=== PATIENT | female | born 1995 | race Caucasian/White ===

== ENCOUNTER 2016-10-06 20:21 | Inpatient (IN) | payer OTHER ==
[2016-10-06] MEDS ORDERED: SODIUM CHLORIDE 1,000 ML IV ONE (21:11)
[2016-10-06] MEDS ORDERED: ONDANSETRON 4 MG/2 ML VIAL IVPB ONE (21:11)
--- NOTE | 2016-10-06 21:12 | PDOC ---
History of Present Illness <Sheba Nolasco - Last Filed: 10/07/16 00:55> - General History Source: Patient Exam Limitations: No Limitations - History of Present Illness Travel History: No Initial Comments: 10/06/16 21:50 21y F no pmhx presents with R flank pain and vomiting x 1 day associated with chills. The pt notes the pain is constant and starts in the R flank and radiates to the R back and down to the RLQ. associated with nbnb vomiting. no change of food with po intake though pt stats she cant really keep anything down. no associated diarrhea or vag dc. never had these symptoms before. Timing/Duration: reports: constant <Sonu Sumner - Last Filed: 10/07/16 01:09> - General Chief Complaint: Pain Stated Complaint: VOMITING; SIDE PAIN Time Seen by Provider: 10/06/16 20:42 Past History <Sheba Nolasco - Last Filed: 10/07/16 00:55> - Past Medical History Other medical history: Pt denies - Psycho/Social/Smoking Cessation Hx Suicidal Ideation: No Smoking History: Never smoked Hx Alcohol Use: No Drug/Substance Use Hx: No Substance Use Type: None <Sonu Sumner - Last Filed: 10/07/16 01:09> - Past Medical History Allergies/Adverse Reactions: Allergies Allergy/AdvReac Type Severity Reaction Status Date / Time No Known Allergies Allergy Verified 10/06/16 20:34 Home Medications: Ambulatory Orders NK [No Known Home Medication] 10/06/16 Review of Systems - Review of Systems Able to Perform ROS?: Yes Comments:: 10/06/16 22:10 Constitutional - +Chills, no reported Fever, HEENT: no reported vision changes, sore throat Respiratory: no reported cough, sob, hemoptysis Cardiac: no reported chest pain, palpitations, light headedness, leg swelling Abd/GI: +flank pain, nausea/vomting, no reported abd pain, blood per rectum, melena, diarrhea : no reported dysuria, frequency, discharge Musculskelatal - no reported back pain, joint swelling skin - no reported bruising, erythema, rash neurological: no reported headache, numbness, focal weakness, tingling, ataxia, hematologic: no reported anemia, easy bruising, easy bleeding <Taisha,Sonu - Last Filed: 10/07/16 01:09> *Physical Exam - Vital Signs Last Vital Signs Temp Pulse Resp BP Pulse Ox 99.2 F 133 H 18 106/69 99 10/06/16 20:34 10/06/16 20:34 10/06/16 20:34 10/06/16 20:34 10/06/16 20:34 <RuthienancySheba - Last Filed: 10/07/16 00:55> - Vital Signs Last Vital Signs Temp Pulse Resp BP Pulse Ox 99.2 F 133 H 18 106/69 99 10/06/16 20:34 10/06/16 20:34 10/06/16 20:34 10/06/16 20:34 10/06/16 20:34 - Physical Exam Comments: 10/06/16 22:14 GENERAL: The patient is awake, alert, and fully oriented, Nontoxic - in no acute distress. HEAD: Normocephalic, atraumatic. EYES: extraocular movements intact, sclera anicteric, conjunctiva clear. ENT: Normal voice, Moist mucous membranes. NECK: Normal range of motion, supple LUNGS: Breath sounds equal, clear to auscultation bilaterally. No wheezes, no rhonchi, no rales. HEART: tachycardic ABDOMEN: +R CVA tendernes, RLQ/RUQ/suprapubic tenderness, Soft, normoactive bowel sounds. No guarding, no rebound. EXTREMITIES: Normal range of motion, no edema. No clubbing or cyanosis. No cords, erythema, or tenderness. NEUROLOGICAL: No facial assymetry, Normal speech, PSYCH: Normal mood, normal affect. SKIN: Warm, Dry, normal turgor, 10/06/16 22:15 <Sonu Sumner - Last Filed: 10/07/16 01:09> ED Treatment Course - LABORATORY CBC & Chemistry Diagram: 10/06/16 21:25 10/06/16 21:25 - ADDITIONAL ORDERS Additional order review: Laboratory Results 10/06/16 10/06/16 10/06/16 21:25 21:25 21:25 Sodium 133 L Potassium 4.3 Chloride 97 L Carbon Dioxide 25 Anion Gap 11 BUN 7 Creatinine 0.6 Creat Clearance w eGFR > 60 Random Glucose 102 Calcium 9.0 Total Bilirubin 0.4 AST 11 L ALT 17 Alkaline Phosphatase 73 Total Protein 7.6 Albumin 3.6 Beta HCG, Quant 47072.3 Serum , Qual Positive Urine Color Yellow Urine Appearance Cloudy Urine pH 6.0 Ur Specific Brandon 1.025 Urine Protein 2+ H Urine Glucose (UA) Negative Urine Ketones 2+ H Urine Blood 2+ H Urine Nitrite Negative Urine Bilirubin Negative Urine Urobilinogen Negative Ur Leukocyte Esterase 3+ H Urine RBC 115 Urine WBC 580 Ur Epithelial Cells Moderate Urine Bacteria Moderate Urine Mucus Rare 10/06/16 21:25 RBC 3.77 MCV 92.0 MCHC 33.1 RDW 14.1 MPV 8.9 Neutrophils % 86.0 H Lymphocytes % 3.0 L Monocytes % 8.0 - RADIOLOGY Radiology Studies Ordered: 10/07/16 00:56 This is a preliminary report by imaging telephone supervisor Exam: Renal sonogram Clinical indication: Rule out hydronephrosis. Right flank pain. Findings: The right kidney has a normal appearance and echotexture and measures 10 cm in length. No parenchymal mass, shadowing calculus or hydronephrosis is seen. The left kidney has a normal appearance and normal echotexture measures 10.3 cm in length. No parenchymal mass, shadowing calculus or hydronephrosis is seen. Impression: Normal appearance of both kidneys. THIS DOCUMENT HAS BEEN ELECTRONICALLY SIGNED Tao Gomes M.D. This is a preliminary report by imaging telephone supervisor Exam: First trimester transabdominal OB sonogram and duplex sonography Clinical indication: with abdominal pain. Findings: The uterus is anteverted and gravid and measures 13.8 x 6.6 x 8.9 cm. heart rate is 176 beats per minute. [place]-rump length measurements of the pole corresponding to 12 weeks one day gestational age. The amniotic fluid is within normal limits. The right ovary has a normal appearance, measures 3.7 x 1.9 x 3.6 cm and demonstrates normal arterial flow on color Doppler images. The left ovary has a normal appearance and measures 3.4 x 1.3 x 2.7 cm. Venous flow is faintly visualized on color Doppler images which is likely positional. A normal-appearing yolk sac is seen. Impression: Single live intrauterine gestation approximately 12 weeks one day. No jose-gestational hematoma seen. No other acute abnormality seen. Normal appearance of both ovaries with normal vascular flow well demonstrated on the right. Vascular flow is faintly demonstrated in the left ovary which is likely related to position of the ovary. THIS DOCUMENT HAS BEEN ELECTRONICALLY SIGNED Tao Gomes M.D. - Medications Given in the ED: ED Medications Discontinued Medications Generic Name Dose Route Start Last Admin Trade Name Lizzie PRN Reason Stop Dose Admin Sodium Chloride 1,000 mls @ 1,000 mls/hr 10/06/16 21:11 10/06/16 21:33 Normal Saline - IV 10/06/16 22:10 1,000 mls/hr .Q1H ONE Administration Ceftriaxone Sodium 1 gm/ 50 mls @ 100 mls/hr 10/06/16 22:59 10/07/16 00:27 Dextrose IVPB 10/06/16 23:28 100 mls/hr ONCE ONE Administration Ondansetron HCl 4 mg 10/06/16 21:11 10/06/16 21:34 Zofran Injection IVPB 10/06/16 21:12 4 mg ONCE ONE Administration <Sheba Nolasco - Last Filed: 10/07/16 00:55> - LABORATORY CBC & Chemistry Diagram: 10/06/16 21:25 10/06/16 21:25 <Sonu Sumner - Last Filed: 10/07/16 01:09> Medical Decision Making - Medical Decision Making 10/06/16 22:15 10/06/16 22:58 21y F here with chills/nausa/vomiting/flank pain, on exam pt with R flank pain urine c/w infection. suspect pyelonephritis pts labs noted for + pt states her last period was in early august will give pt ctx will obtain US to eval for preganncy and renal us to r/o hydroneprhosis 10/07/16 01:06 no hydro on US preg shows 12 week gestation IUP will admit for iv abx d/w dr. christian agreed with admission consult for OB placed Case discussed in detail with admitting physician including history, physical exam and ancillary studies. Admitting physician has assumed care for the patient, will follow all pending diagnostics and will complete the evaluation and treatment. <Sonu Sumner - Last Filed: 10/07/16 01:09> *DC/Admit/Observation/Transfer <Sheba Nolasco - Last Filed: 10/07/16 00:55> - Discharge Dispostion Admit: Yes <Sonu Sumner - Last Filed: 10/07/16 01:09> Diagnosis at time of Disposition: Pyelonephritis affecting in first trimester - Discharge Dispostion Condition at time of disposition: Stable
[2016-10-06] MEDS ORDERED: ONDANSETRON 4 MG/2 ML VIAL ONE (21:14)
[2016-10-06 21:51] LABS: MCH 30.4 pg (25.7-33.7); MCHC 33.1 g/dl (32.0-36.0); MEAN PLT VOLUME 8.9 fl (7.5-11.1); PLATELET COUNT 282 K/MM3 (134-434); RDW 14.1 % (11.6-15.6); WHITE BLOOD COUNT 15.7 K/mm3 (4.0-10.0)
[2016-10-06 21:56] LABS: URINE APPEARANCE CLOUDY; URINE BILIRUBIN NEGATIVE (NEGATIVE); URINE COLOR YELLOW; URINE GLUCOSE (UA) NEGATIVE (NEGATIVE); URINE KETONE 2+ (NEGATIVE); URINE NITRITE NEGATIVE (NEGATIVE); URINE UROBILINOGEN NEGATIVE E.U./dl (0.2-1.0)
[2016-10-06 21:58] LABS: URINE BLOOD 2+ (NEGATIVE); URINE PROTEIN 2+ (NEGATIVE)
[2016-10-06 21:59] LABS: URINE LEUK ESTERASE 3+ (NEGATIVE)
[2016-10-06 22:01] LABS: URINE BACTERIA MODERATE /hpf (NONE SEEN); URINE MUCUS RARE; URINE RBC 115 /hpf (0-3); URINE WBC 580 /hpf (3-5)
[2016-10-06 22:14] LABS: ALBUMIN 3.6 g/dl (3.4-5.0); ALK PHOS 73 U/L (45-117); ANION GAP 11 (8-16); BILIRUBIN,TOTAL 0.4 mg/dL (0.2-1.0); CO2 25 mmol/L (21-32); COCKROFT - GAULT 126.3695; CREATININE 0.6 mg/dL (0.55-1.02); GLUCOSE,RANDOM 102 mg/dL (74-106); SGOT/AST 11 U/L (15-37); SGPT/ALT 17 U/L (12-78); TOT PROT 7.6 g/dl (6.4-8.2)
[2016-10-06] MEDS ORDERED: CEFTRIAXONE 1 GM in DEXTROSE 5%-WATER - 50 ML IVPB ONE (22:59)
[2016-10-06 23:11] LABS: PLATELET ESTIMATE ADEQUATE (NORMAL)
[2016-10-06] MEDS ORDERED: cefTRIAXone SODIUM 1 GM VIAL ONE (23:39)
[2016-10-06] MEDS ORDERED: CEFTRIAXONE 50 ML ONE (23:40)
--- NOTE | 2016-10-07 01:09 | PN ---
<AxelkelleyShama kapoor - Last Filed: 10/07/16 01:03> Teaching Attending Note Name of Resident: Jaclyn Vincent ATTENDING PHYSICIAN STATEMENT ASSESSMENT AND PLAN: Pyelonephritis/UTI, 12 weeks Admit for IV antibiotics- Ceftriaxone IVF NS @125cc/h tylenol prn for fever or pain [employer]UC[employer]CH[employer]IC consult patient without care vitamins <SolisRosa jimenez - Last Filed: 10/07/16 02:42> Teaching Attending Note ATTENDING PHYSICIAN STATEMENT I saw and evaluated the patient. I reviewed the resident's note and discussed the case with the resident. I agree with the resident's findings and plan as documented. SUBJECTIVE: 21 yo F presents with R flank pain, vomiting and chills for 1 day. Upon evaluation in the ED, patient was found to be 12 weeks . Patient states the pain is constant and starts in the R flank and radiates to the R back and down to the RLQ. Patient notes the back pain is exacerbated upon urination. Patient also endorses associated nausea, chills and frequency. Patient denies blood and mucus in her urine. Patient endorses irregular menstruations recently. Patient is not taking OCPs and does not use any more of control. Patient has one 3 yo child. PMHx: Denies OBJECTIVE: Last Vital Signs Temp Pulse Resp BP Pulse Ox 98.7 F 98 H 17 123/71 98 10/07/16 02:04 10/07/16 02:04 10/07/16 02:04 10/07/16 02:04 10/07/16 02:04 GENERAL: Awake, alert, and fully oriented, in no acute distress HEENT: Atraumatic. PERRLA, EOMI. Moist mucosa. No JVD LUNGS: No distress, speaks full sentences, clear to auscultation bilaterally HEART: Regular rate and rhythm, normal S1 and S2, no murmurs, rubs or gallops, peripheral pulses normal and equal bilaterally. ABDOMEN: Soft, nontender, normoactive bowel sounds. No guarding, no rebound. No masses EXTREMITIES: Normal inspection, Normal range of motion, no edema. No clubbing or Cyanosis. NEUROLOGICAL: Cranial nerves II through XII grossly intact. Normal speech, gait not assessed, no focal sensorimotor deficits SKIN: Warm, Dry, normal turgor, no rashes or lesions noted. CBCD WBC 15.7 K/mm3 (4.0-10.0) H 10/06/16 21:25 RBC 3.77 M/mm3 (3.60-5.2) 10/06/16 21:25 Hgb 11.5 GM/dL (10.7-15.3) 10/06/16 21:25 Hct 34.7 % (32.4-45.2) 10/06/16 21:25 MCV 92.0 fl (80-96) 10/06/16 21:25 MCHC 33.1 g/dl (32.0-36.0) 10/06/16 21:25 RDW 14.1 % (11.6-15.6) 10/06/16 21:25 Plt Count 282 K/MM3 (134-434) 10/06/16 21:25 MPV 8.9 fl (7.5-11.1) 10/06/16 21:25 CMP Sodium 133 mmol/L (136-145) L 10/06/16 21:25 Potassium 4.3 mmol/L (3.5-5.1) 10/06/16 21:25 Chloride 97 mmol/L (98-107) L 10/06/16 21:25 Carbon Dioxide 25 mmol/L (21-32) 10/06/16 21:25 Anion Gap 11 (8-16) 10/06/16 21:25 BUN 7 mg/dL (7-18) 10/06/16 21:25 Creatinine 0.6 mg/dL (0.55-1.02) 10/06/16 21:25 Creat Clearance w eGFR > 60 (>60) 10/06/16 21:25 Calcium 9.0 mg/dL (8.5-10.1) 10/06/16 21:25 Total Bilirubin 0.4 mg/dL (0.2-1.0) 10/06/16 21:25 AST 11 U/L (15-37) L 10/06/16 21:25 ALT 17 U/L (12-78) 10/06/16 21:25 Alkaline Phosphatase 73 U/L (45-117) 10/06/16 21:25 Total Protein 7.6 g/dl (6.4-8.2) 10/06/16 21:25 Albumin 3.6 g/dl (3.4-5.0) 10/06/16 21:25 Documentation is prepared by Rosa Thompson acting as medical service representative for Shama Nuñez M.D.
[2016-10-07] MEDS ORDERED: ONDANSETRON *ODT* 4 MG TABLET SL PRN (02:14)
[2016-10-07] MEDS ORDERED: SODIUM CHLORIDE 1,000 ML IV SCH (02:15)
--- NOTE | 2016-10-07 02:29 | HP ---
CHIEF COMPLAINT: right RLQ pain PCP: HISTORY OF PRESENT ILLNESS: 21 year old female, , presents to ER with complaints of sharp, non radiating , right flank/LQ pain and vomiting that started yesterday. She believes she also had a fever. Patient denies dysuria, hematuria, change in frequency of urination. Denies vaginal discharge. She has unprotected sex with boyfriend. LMP was August 16, which was regular. ER work up significant for positive test (patient unaware). WBC count elevated. UA positive for bacteria and LE. Kidney ultrasound negative for acute pathology, including hydronephrosis. Trans abdominal US evident for live intrauterine gestation approx 12 weeks. Recent Travel: no PAST MEDICAL HISTORY: none PAST SURGICAL HISTORY: c section Social History: Smoking:no Alcohol:no Drugs: no Family History: Allergies No Known Allergies Allergy (Verified 10/06/16 20:34) HOME MEDICATIONS: Home Medications Medication Instructions Recorded NK [No Known Home Medication] 10/06/16 REVIEW OF SYSTEMS CONSTITUTIONAL: Positive: fever, chills Absent: diaphoresis, generalized weakness, malaise, loss of appetite, weight change HEENT: Absent: rhinorrhea, nasal congestion, throat pain, throat swelling, difficulty swallowing, mouth swelling, ear pain, eye pain, visual changes CARDIOVASCULAR: Absent: chest pain, syncope, palpitations, irregular heart rate, lightheadedness , peripheral edema RESPIRATORY: Absent: cough, shortness of breath, dyspnea with exertion, orthopnea, wheezing, stridor, hemoptysis GASTROINTESTINAL: Positive: abdominal pain, nausea, vomiting Absent: , diarrhea, constipation, melena, hematochezia GENITOURINARY: Absent: dysuria, frequency, urgency, hesitancy, hematuria, flank pain, genital pain MUSCULOSKELETAL: Absent: myalgia, arthralgia, joint swelling, back pain, neck pain SKIN: Absent: rash, itching, pallor HEMATOLOGIC/IMMUNOLOGIC: Absent: easy bleeding, easy bruising, lymphadenopathy, frequent infections ENDOCRINE: Absent: unexplained weight gain, unexplained weight loss, heat intolerance, cold intolerance NEUROLOGIC: Absent: headache, focal weakness or paresthesias, dizziness, unsteady gait, seizure, mental status changes, bladder or bowel incontinence PSYCHIATRIC: Absent: anxiety, depression, suicidal or homicidal ideation, hallucinations. PHYSICAL EXAMINATION Vital Signs - 24 hr 10/07/16 02:04 Temperature 98.7 F Pulse Rate [ 98 H Radial] Respiratory 17 Rate Blood Pressure 123/71 [Arm] O2 Sat by Pulse 98 Oximetry (%) GENERAL: Awake, alert, and fully oriented, in no acute distress. HEAD: Normal with no signs of trauma. EYES: Pupils equal, round and reactive to light, extraocular movements intact, sclera anicteric, conjunctiva clear. No lid lag. EARS, NOSE, THROAT: Ears normal, nares patent, oropharynx clear without exudates. Moist mucous membranes. NECK: Normal range of motion, supple without lymphadenopathy, JVD, or masses. LUNGS: Breath sounds equal, clear to auscultation bilaterally. No wheezes, and no crackles. No accessory muscle use. HEART: Regular rate and rhythm, normal S1 and S2 without murmur, rub or gallop. ABDOMEN: Soft, tender RLQ, right flank tenderness to palpation, not distended, normoactive bowel sounds, no guarding, no rebound, no masses. No hepatomegaly or splenomegaly. MUSCULOSKELETAL: Normal range of motion at all joints. No bony deformities or tenderness. No CVA tenderness. UPPER EXTREMITIES: 2+ pulses, warm, well-perfused. No cyanosis. No clubbing. No peripheral edema. LOWER EXTREMITIES: 2+ pulses, warm, well-perfused. No calf tenderness. No peripheral edema. NEUROLOGICAL: Cranial nerves II-XII intact. Normal speech. Normal gait. PSYCHIATRIC: Cooperative. Good eye contact. Appropriate mood and affect. SKIN: Warm, dry, normal turgor, no rashes or lesions noted, normal capillary refill. CBC, BMP 10/06/16 21:25 10/06/16 21:25 ASSESSMENT/PLAN: 21 year old female with no PMHx presents to ER with right flank pain and vomiting x1 day. Found to be with urinary tract infection. Renal US negative for acute pathology including hydronephrosis. #urinary tract infection in woman: -IVF, antiemetic prn -IV ceftriaxone 1gm daily -renal US reviewed -MULTIMEDIA EDITOR consulted #hyponatremia most likely hypovolemic hyponatremia from fluid loss: -IVF, trend FEN: Fluids: 125ml/hr NS Electrolytes: hyponatremia Diet: regular VTE prophylaxis: patient ambulating Problem List - Problem (1) Urinary tract infection affecting care of mother in first trimester, antepartum Code(s): O23.41 - UNSP INFCT OF URINARY TRACT IN , FIRST TRIMESTER Visit type - Emergency Visit Emergency Visit: Yes ED Registration Date: 10/07/16 Care time: The patient presented to the Emergency Department on the above date and was hospitalized for further evaluation of their emergent condition. - New Patient This patient is new to me today: Yes Date on this admission: 10/07/16 - Critical Care Critical Care patient: No
[2016-10-07 03:34] VITALS: BMI 22.4
[2016-10-07] MEDS: ACETAMINOPHEN 325 MG TABLET (FP) PO PRN ×2 (06:35→17:22)
--- NOTE | 2016-10-07 09:34 | CON.OBG ---
Consult Consult Specialty:: ob - History of Present Illness Chief Complaint: fever, vomiting, flank pain History of Present Illness: 21 yo f with 1 previous c/s , admitted with fever,vomiting and flank pain, sono 12 weeks iup, u/a positve for bacteria and LE,no dysuria, no pelvic pain, no vaginal discharge or bleeding, patient was not aware she was . - History Source History Provided By: Caregiver Limitations to Obtaining History: Language Barrier - Past Medical History ...LMP: 08/06/16 ...: Yes ...: 2 ...Para: 1 - Alcohol/Substance Use Hx Alcohol Use: No - Smoking History Smoking history: Never smoked - Social History Usual Living Arrangement: Alone History of Recent Travel: No Home Medications - Allergies Allergies/Adverse Reactions: Allergies Allergy/AdvReac Type Severity Reaction Status Date / Time No Known Allergies Allergy Verified 10/06/16 20:34 - Home Medications Home Medications: Ambulatory Orders NK [No Known Home Medication] 10/06/16 Review of Systems - Review of Systems Constitutional: reports: Fever Eyes: reports: No Symptoms HENT: reports: No Symptoms Neck: reports: No Symptoms Cardiovascular: reports: No Symptoms Respiratory: reports: No Symptoms Gastrointestinal: reports: Nausea, Vomiting Genitourinary: reports: Flank Pain Breasts: reports: No Symptoms Reported Musculoskeletal: reports: No Symptoms Integumentary: reports: No Symptoms Neurological: reports: No Symptoms Endocrine: reports: No Symptoms Psychiatric: reports: No Symptoms Physical Exam-CHANNEL MAN Vital Signs: Vital Signs Temperature 100.1 F H 10/07/16 06:00 Pulse Rate 98 H 10/07/16 02:04 Respiratory Rate 10/07/16 02:04 Blood Pressure 123/71 10/07/16 02:04 O2 Sat by Pulse Oximetry (%) 98 10/07/16 02:04 Uterus: Yes: Anteverted, Enlarged, Soft (12 weeks,) Adnexa: Not Palpable: Left, Right Edema: No Problem List - Problems (1) with 12 completed weeks gestation Code(s): Z3A.12 - 12 WEEKS GESTATION OF (2) Pyelonephritis affecting Code(s): O23.00 - INFECTIONS OF KIDNEY IN , UNSPECIFIED TRIMESTER Qualifiers: Trimester: first trimester Qualified Code(s): O23.01 - Infections of kidney in , first trimester Assessment/Plan plan cont rocephine iv untill afebrile for 48 HRS pending urine C/S. then discharge on po macrobid 100 mg bid for 1 week. patient advised to follow up on discharge at my office for first trimester screening sono and blood test . tel no given to make apt, importance discussed
[2016-10-07] MEDS ORDERED: CEFTRIAXONE 1 GM in DEXTROSE 5%-WATER - 50 ML IVPB SCH (10:00)
--- NOTE | 2016-10-07 14:53 | PN ---
Physical Exam: SUBJECTIVE: Patient seen and examined she still has R flank pain and r lower abd pain. Denies fever chills further vomiting OBJECTIVE: Vital Signs Period Temp Pulse Resp BP Sys/Farr Pulse Ox Last 24 Hr 98.7 F-100.1 F 98 - 123/71 98-98 PE Neuro: alert, awake, cn 2-12intact Pulm: CTAB CV: s1 s2 rrr no mrg Abd: RLQ tenderness : R flank pain refers to abdomen + tenderness Ext: warm, no le edema Laboratory Results - last 24 hr 10/07/16 06:30 Lactic Acid 0.7 Active Medications Generic Name Dose Route Start Last Admin Trade Name Freq PRN Reason Stop Dose Admin Acetaminophen 650 mg 10/07/16 02:21 10/07/16 06:35 Tylenol - PO 650 mg Q4H PRN Administration FEVER OR PAIN Ceftriaxone Sodium 1 gm 10/07/16 20:00 Rocephin 1gm Ivpb (Pre-Docked) IVPB DAILY SATYA Sodium Chloride 1,000 mls @ 125 mls/hr 10/07/16 02:15 10/07/16 03:00 Normal Saline - IV 125 mls/hr ASDIR SATYA Administration Ondansetron HCl 4 mg 10/07/16 02:14 10/07/16 03:00 Zofran Odt - SL 4 mg Q6H PRN Administration NAUSEA AND/OR VOMITING Assessment: 21 year old female , 1 previous c section, admitted with x1 day right flank pain and UTI and 1. UTI in woman - Urine cx pending - Continue ceftriaxone daily (day 2) - D/w OB can dc home once afebrile x48hr 2. Hyponatremia - will repeat AM labs - Will decrease fluid rate Visit type - Emergency Visit Emergency Visit: Yes ED Registration Date: 10/07/16 Care time: The patient presented to the Emergency Department on the above date and was hospitalized for further evaluation of their emergent condition. - New Patient This patient is new to me today: Yes Date on this admission: 10/07/16 - Critical Care Critical Care patient: No - Discharge Referral Referred to [facility] Med [facility] No
[2016-10-07] MEDS: SODIUM CHLORIDE 1,000 ML IV SCH (16:42)
[2016-10-07] MEDS: cefTRIAXone 1 GM/50 ML BAG (PRE-DOCKED) IVPB SCH (18:49)
[2016-10-07] MEDS ORDERED: cefTRIAXone 1 GM/50 ML BAG (PRE-DOCKED) IVPB SCH (20:00)
[2016-10-08 08:45] LABS: CALCIUM 8.1 mg/dL (8.5-10.1); COCKROFT - GAULT 193.409; CREATININE 0.4 mg/dL (0.55-1.02)
[2016-10-08 08:46] LABS: BASOPHIL 0.2 % (0-2.0); EOSINOPHIL 0.3 % (0-4.5); MCH 31.2 pg (25.7-33.7); MCHC 33.9 g/dl (32.0-36.0); MEAN PLT VOLUME 8.9 fl (7.5-11.1); NEUTROPHILS 77.8 % (42.8-82.8); PLATELET COUNT 254 K/MM3 (134-434); WHITE BLOOD COUNT 8.7 K/mm3 (4.0-10.0)
--- NOTE | 2016-10-08 09:14 | PN ---
Physical Exam: SUBJECTIVE: Patient seen and examined. She says she feels better today, less pain, although she is feeling nauseated. 24 Events: - Tmax 102.8, low grade this am - Flank pain improved OBJECTIVE: Vital Signs Period Temp Pulse Resp BP Sys/Farr Pulse Ox Last 24 Hr 97.8 F-102.8 F 57-112 17-20 97-106/53-63 98 PE Neuro: alert, awake, cn 2-12intact Pulm: CTAB CV: s1 s2 rrr no mrg Abd: s nt nd + bs : R flank pain refers to abdomen + tenderness- improved Ext: warm, no le edema Laboratory Results - last 24 hr 10/08/16 10/08/16 06:30 06:30 WBC 8.7 D RBC 3.36 L Hgb 10.5 L Hct 30.9 L MCV 92.0 MCHC 33.9 RDW 14.0 Plt Count 254 MPV 8.9 Neutrophils % 77.8 Lymphocytes % 11.3 D Monocytes % 10.4 H Eosinophils % 0.3 Basophils % 0.2 Sodium 136 Potassium 3.9 Chloride 104 Carbon Dioxide 20 L Anion Gap 12 BUN 4 L D Creatinine 0.4 L D Random Glucose 76 D Calcium 8.1 L Active Medications Generic Name Dose Route Start Last Admin Trade Name Freq PRN Reason Stop Dose Admin Acetaminophen 650 mg 10/07/16 02:21 10/07/16 17:22 Tylenol - PO 650 mg Q4H PRN Administration FEVER OR PAIN Ceftriaxone Sodium 1 gm 10/07/16 18:45 10/07/16 18:49 Rocephin 1gm Ivpb (Pre-Docked) IVPB 1 gm DAILY SATYA Administration Sodium Chloride 1,000 mls @ 100 mls/hr 10/07/16 15:03 10/07/16 16:42 Normal Saline - IV 100 mls/hr ASDIR SATYA Administration Ondansetron HCl 4 mg 10/07/16 02:14 10/07/16 03:00 Zofran Odt - SL 4 mg Q6H PRN Administration NAUSEA AND/OR VOMITING Assessment: 21 year old female , 1 previous c section, admitted with x1 day right flank pain and UTI and 1. UTI in woman - Urine cx pending - Continue ceftriaxone daily (day 3) - Continue IVF 100cc/hr - Monitor fever curve - Tylenol, zofran PRN 2. Hyponatremia - Resolved Visit type - Emergency Visit Emergency Visit: Yes ED Registration Date: 10/07/16 Care time: The patient presented to the Emergency Department on the above date and was hospitalized for further evaluation of their emergent condition. - New Patient This patient is new to me today: No - Critical Care Critical Care patient: No
[2016-10-08] MEDS: cefTRIAXone 1 GM/50 ML BAG (PRE-DOCKED) IVPB SCH (10:07)
[2016-10-08] MEDS: PRENATAL VITAMINS W/ FOLIC ACID TABLET (FP) PO SCH (10:47)
--- NOTE | 2016-10-08 11:19 | PN ---
Progress Note (short form) - Note Progress Note: 12 weeks, pyelo CBC, BMP 10/08/16 06:30 10/08/16 06:30 Last Vital Signs Temp Pulse Resp BP Pulse Ox 99.9 F H 112 H 18 106/63 98 10/08/16 06:00 10/08/16 06:00 10/08/16 06:00 10/08/16 06:00 10/07/16 11:00 feels better , less pain, still has nausea abdomen soft, non tender . mild rt cva urine >100.000 GM negative bacillus. c/s pending plan cont iv antibiotic. Problem List - Problems (1) with 12 completed weeks gestation Code(s): Z3A.12 - 12 WEEKS GESTATION OF (2) Pyelonephritis affecting Code(s): O23.00 - INFECTIONS OF KIDNEY IN , UNSPECIFIED TRIMESTER Qualifiers: Trimester: first trimester Qualified Code(s): O23.01 - Infections of kidney in , first trimester
[2016-10-08] MEDS: SODIUM CHLORIDE 1,000 ML IV SCH (17:06)
[2016-10-09] MEDS: SODIUM CHLORIDE 1,000 ML IV SCH (02:05)
[2016-10-09 08:02] LABS: MCH 31.3 pg (25.7-33.7); MCHC 34.1 g/dl (32.0-36.0); MEAN CELL VOLUME 91.8 fl (80-96); MEAN PLT VOLUME 8.6 fl (7.5-11.1); PLATELET COUNT 264 K/MM3 (134-434); RDW 14.1 % (11.6-15.6); WHITE BLOOD COUNT 6.5 K/mm3 (4.0-10.0)
[2016-10-09 08:28] LABS: CALCIUM 7.9 mg/dL (8.5-10.1); COCKROFT - GAULT 257.8815; CREATININE 0.3 mg/dL (0.55-1.02)
[2016-10-09] MEDS ORDERED: PT OWN MED DRAWER 7, Y5N ONE (10:26)
[2016-10-09] MEDS: PRENATAL VITAMINS W/ FOLIC ACID TABLET (FP) PO SCH (10:33)
[2016-10-09] MEDS: cefTRIAXone 1 GM/50 ML BAG (PRE-DOCKED) IVPB SCH (10:34)
--- NOTE | 2016-10-09 12:44 | DS ---
Physical Exam: SUBJECTIVE: Patient seen and examined. She states to feeling much better today. Afebrile x24hr OBJECTIVE: Vital Signs Period Temp Pulse Resp BP Sys/Farr Pulse Ox Last 24 Hr 98.2 F-99.1 F 76-99 18-20 102-107/56-70 98 PE Neuro: alert, awake, cn 2-12intact Pulm: CTAB CV: s1 s2 rrr no mrg Abd: s nt nd + bs : R flank pain refers to abdomen + tenderness- improved Ext: warm, no le edema Laboratory Results - last 24 hr 10/09/16 10/09/16 06:30 06:30 WBC 6.5 RBC 3.26 L Hgb 10.2 L Hct 29.9 L MCV 91.8 MCHC 34.1 RDW 14.1 Plt Count 264 MPV 8.6 Sodium 139 Potassium 3.7 Chloride 107 Carbon Dioxide 19 L Anion Gap 13 BUN 5 L D Creatinine 0.3 L D Random Glucose 65 L Calcium 7.9 L HOSPITAL COURSE: Date of Admission:10/07/16 Date of Discharge: 10/09/16 Minutes to complete discharge: 37 Discharge Summary Reason For Visit: PYELONEPHRITIS Current Active Problems with 12 completed weeks gestation (Acute) Pyelonephritis affecting (Acute) Pyelonephritis affecting in first trimester (Acute) Urinary tract infection affecting care of mother in first trimester, antepartum (Acute) Hospital Course: Initial Hospital Course: Briefly,this 21 year old female, , presented to ER with complaints of sharp , non radiating, right flank/LQ pain and vomiting with subjective fevers. Patient denied dysuria, hematuria, change in frequency of urination. Denies vaginal discharge. She has unprotected sex with boyfriend. LMP was August 16, which was regular. ER work up significant for positive test (patient unaware). WBC count elevated. UA positive for bacteria and LE. Kidney ultrasound negative for acute pathology, including hydronephrosis. Trans abdominal US evident for live intrauterine gestation approx 12 weeks. Subsequent Hospital Course/Progress Note/Discharge Summary by a/p: Assessment: 21 year old female , 1 previous c section, admitted with x1 day right flank pain and UTI and . 1. UTI in woman - Urine cx with E coli - Continue ceftriaxone daily (day 4) - Home with macrobid 100mg BID x7 days - Appt with Dr. Joyner on at 2. Hyponatremia - Resolved Dispo: - Home with above abx and office apt. - Pt aware and agrees to above plan Condition: Stable - Instructions Diet, Activity, Other Instructions: Please return to the ED for any new, persistent, or worsening symptoms. Follow up with your PCP in 1 week continue your medication as directed and until completed for 7 more days You have an appointment with Dr. Joyner on 10/21 at you need to keep this appointment he is expecting you. Referrals: Xavi Gale [Primary Care Provider] - Isiah Joyner MD [Staff Physician] - 1 Week Disposition: HOME - Home Medications Comprehensive Discharge Medication List: Ambulatory Orders Nitrofurantoin Monohyd/M-Cryst [Macrobid -] 100 mg PO BID #14 capsule 10/09/16 This patient is new to me today: No Emergency Visit: Yes ED Registration Date: 10/07/16 Care time: The patient presented to the Emergency Department on the above date and was hospitalized for further evaluation of their emergent condition. Critical Care patient: No - Discharge Referral Referred to [facility] Med P.C.: No
[2016-10-10 05:59] VITALS: TEMP 97.6
[2016-10-10 09:14] VITALS: BP 205/60; PULSE 85
[2016-10-10] MEDS ORDERED: PT OWN MED DRAWER 7, Y5N ONE (09:39)
[2016-10-10] MEDS: SODIUM CHLORIDE 1,000 ML IV SCH (09:41)
[2016-10-10] MEDS: cefTRIAXone 1 GM/50 ML BAG (PRE-DOCKED) IVPB SCH (09:42)
[2016-10-10] MEDS: PRENATAL VITAMINS W/ FOLIC ACID TABLET (FP) PO SCH (09:42)
== END 2016-10-10 12:12 | disposition home or self-care (01) | DRG 566 ==
LOC: JER 20:21 → JERBED 10-07 01:13 → J8W 10-07 02:36
PROVIDERS: ADMIT Internal Medicine; ATTEND Nurse Practitioner Acute Care
DX: O23.01 Infections of kidney in pregnancy, first trimester (principal); Z3A.12 12 weeks gestation of pregnancy; E87.1 Hypo-osmolality and hyponatremia; N10 Acute pyelonephritis; B96.20 Unspecified Escherichia coli [E. coli] as the cause of diseases classified elsewhere
CPT/HCPCS: 36415; 76775-TC; 76801-TC; 80048; 80053; 81003; 81015; 83605; 84702; 84703; 85025; 85027; 87086; 87186; 99284-25

== ENCOUNTER 2017-04-12 14:00 | Inpatient (IN) | payer OTHER ==
[2017-04-12 15:48] VITALS: BMI 26.7
[2017-04-12] MEDS ORDERED: CITRIC ACID/SODIUM CITRATE 30 ML UNIT-DOSE CUP PO ONE ×2 (15:59→16:15)
[2017-04-12] MEDS ORDERED: ELECTROLYTE-148 SOLN 1,000 ML IV SCH ×2 (16:00→16:45)
--- NOTE | 2017-04-12 16:08 | HP ---
Past Medical History - Primary Care Physician PCP:: Isiah Joyner - Admission Chief Complaint: 39 weeks, previous c/s , request of c/s History of Present Illness: 22 yo f edc by sono 04/19/17 39 weeks, previous c/s ,requesting repeat c/s, rba discussed , risks of c/s discussed History Source: Patient Limitations to Obtaining History: No Limitations - Past Medical History Renal/: Yes: UTI (tx with macrobid) ...: 2 ...Para: 1 ...Term: 1 ...: 0 ...Spon : 0 ...Induced : 0 ...Multiple Gestation: 0 ...LMP: 08/06/16 ... Weeks Gestation by Dates: 35.4 ...EDC by Dates: 05/13/17 ...EDC by Sono: 04/19/17 - Past Surgical History Past Surgical History: Yes: Hx Myomectomy: No Hx Transabdominal Cerclage: No - Smoking History Smoking history: Never smoked Have you smoked in the past 12 months: No - Alcohol/Substance Use Hx Alcohol Use: No - Social History History of Recent Travel: No Home Medications - Allergies Allergies/Adverse Reactions: Allergies Allergy/AdvReac Type Severity Reaction Status Date / Time No Known Allergies Allergy Verified 10/06/16 20:34 - Home Medications Home Medications: Ambulatory Orders Nitrofurantoin Monohyd/M-Cryst [Macrobid -] 100 mg PO BID #14 capsule 10/10/16 Review of Systems - Review of Systems Constitutional: reports: No Symptoms Eyes: reports: No Symptoms HENT: reports: No Symptoms Neck: reports: No Symptoms Cardiovascular: reports: No Symptoms Respiratory: reports: No Symptoms Gastrointestinal: reports: No Symptoms Genitourinary: reports: No Symptoms Breasts: reports: No Symptoms Reported Musculoskeletal: reports: No Symptoms Integumentary: reports: No Symptoms Neurological: reports: No Symptoms Endocrine: reports: No Symptoms Hematology/Lymphatic: reports: No Symptoms Psychiatric: reports: No Symptoms Physical Exam - Maternity Vital Signs: Vital Signs Temperature 98.2 F 04/12/17 14:00 Pulse Rate 100 H 04/12/17 14:00 Respiratory Rate 18 04/12/17 14:00 Blood Pressure 115/78 04/12/17 14:00 O2 Sat by Pulse Oximetry (%) Hemorrhage Risk Assessment - Risk Factors High Risk Factors: Yes: None Risk Score: 0 Risk Level: Low Risk Problem List - Problems (1) with 39 completed weeks gestation Code(s): Z3A.39 - 39 WEEKS GESTATION OF (2) Previous section complicating Code(s): O34.219 - MATERNAL CARE FOR UNSP TYPE SCAR FROM PREVIOUS DEL Assessment/Plan plan repeat c/s, rba discussed
[2017-04-12] MEDS ORDERED: morphine SULFATE/Preservative Free 0.5 MG/ML (1cc Syringe) ONE (16:14)
[2017-04-12] MEDS ORDERED: ELECTROLYTE-148 SOLN 500 ML IV SCH (16:15)
[2017-04-12] MEDS ORDERED: IBUPROFEN 600 MG TABLET (FP) PO PRN (16:26)
[2017-04-12] MEDS ORDERED: ONDANSETRON 4 MG/2 ML VIAL IVPUSH PRN (16:26)
[2017-04-12] MEDS ORDERED: OXYTOCIN 20 UNITS in 0.9% NS 20 UNIT/1,000 ML INFUS.BAG IV ONE ×2 (16:33→18:21)
[2017-04-12] MEDS ORDERED: ceFAZolin SODIUM 1 GM VIAL ONE (16:34)
[2017-04-12] MEDS ORDERED: oxyCODONE HCL 5 MG TABLET PO PRN ×2 (17:02)
[2017-04-12] MEDS ORDERED: BENZOCAINE 28 GM HEMORRHOIDAL OINTMENT PR PRN (17:02)
[2017-04-12] MEDS ORDERED: IBUPROFEN 800 MG/8 ML IJ IVPB PRN (17:02)
[2017-04-12] MEDS ORDERED: WITCH HAZEL 50% (TUCKS) 40 PAD/JAR PAD TP PRN (17:02)
[2017-04-12] MEDS ORDERED: diphenhydrAMINE HCL 25 MG CAPSULE (FP) PO PRN (17:02)
[2017-04-12] MEDS ORDERED: BENZOCAINE 20% 57 GM BOTTLE TP PRN (17:02)
[2017-04-12] MEDS ORDERED: METHYLERGONOVINE MALEATE 0.2 MG/1 ML AMP IM PRN (17:02)
[2017-04-12] MEDS ORDERED: DEXTROSE 5%-LACTATED RINGERS 1,000 ML IV SCH (17:15)
[2017-04-12] MEDS ORDERED: OXYTOCIN 20 UNITS in 0.9% NS 20 UNIT/1,000 ML INFUS.BAG IV SCH (17:15)
[2017-04-12] MEDS ORDERED: CEFAZOLIN 1 GM/D5W 50 ML IVPB SCH (18:00)
[2017-04-12] MEDS: CEFAZOLIN 1 GM PUSH 1 GM/10 ML DISP.SYRIN IVPUSH SCH (19:05)
[2017-04-13] MEDS: CEFAZOLIN 1 GM PUSH 1 GM/10 ML DISP.SYRIN IVPUSH SCH ×2 (01:50→10:02)
[2017-04-13] MEDS: ACETAMINOPHEN 325 MG TABLET (FP) PO PRN ×2 (07:51→18:34)
[2017-04-13] MEDS: SIMETHICONE 80 MG TAB.CHEW (FP) PO PRN ×2 (07:52→18:35)
[2017-04-13] MEDS: IBUPROFEN 600 MG TABLET (FP) PO PRN ×2 (07:52→18:35)
--- NOTE | 2017-04-13 08:24 | PN ---
Progress Note (short form) - Note Progress Note: POD #1 - s/p under spinal anesthesia with duramorph. VSS. Pt. doing well, sitting comfortably in chair eating breakfast. No complaints. Good pain control. No apparent anesthetic complications noted. Continue current care.
--- NOTE | 2017-04-13 08:42 | PN ---
Progress Note (short form) - Note Progress Note: pod i doing well, no c/o Last Vital Signs Temp Pulse Resp BP Pulse Ox 98.2 F 80 18 121/61 100 04/13/17 06:00 04/13/17 06:00 04/13/17 06:00 04/13/17 06:00 04/12/17 17:50 abdomen soft, no distension, no cva incision dry, clean no excess vaginal bleeding, no calf tenderness plan ambulate , advance diet, cbc Problem List - Problems (1) with 39 completed weeks gestation Code(s): Z3A.39 - 39 WEEKS GESTATION OF (2) Previous section complicating Code(s): O34.219 - MATERNAL CARE FOR UNSP TYPE SCAR FROM PREVIOUS DEL
[2017-04-13 09:07] LABS: BASO % 0.7 % (0-2.0); EOS % 0.6 % (0-4.5); HEMATOCRIT 31.1 % (32.4-45.2); HEMOGLOBIN 10.2 GM/dL (10.7-15.3); LYMPH % 13.8 % (8-40); MCH 28.4 pg (25.7-33.7); MCHC 32.7 g/dl (32.0-36.0); MEAN CELL VOLUME 86.7 fl (80-96); MEAN PLT VOLUME 10.3 fl (7.5-11.1); MONO % 4.2 % (3.8-10.2); NEUT % 80.7 % (42.8-82.8); PLATELET COUNT 209 K/MM3 (134-434); RBC 3.59 M/mm3 (3.60-5.2); RDW 14.1 % (11.6-15.6); WHITE BLOOD COUNT 7.9 K/mm3 (4.0-10.0)
[2017-04-13] MEDS: ENOXAPARIN NA (PORCINE) 40 MG/0.4 ML DISP.SYRIN SQ SCH (09:28)
--- NOTE | 2017-04-13 11:16 | OP ---
DATE OF OPERATION: 04/12/2017 PREOPERATIVE DIAGNOSIS: 39 weeks, previous section, request for repeat section. POSTOPERATIVE DIAGNOSIS: 39 weeks, previous section, request for repeat section. PROCEDURE: Repeat low segment transverse section. SURGEON: Isiah Joyner MD SUPERVISOR FOOD CHECKERS AND CASHIERS: LAUREN Valadez ANESTHESIA: Spinal. Dr. Johnson ESTIMATED BLOOD LOSS: 500 mL. DESCRIPTION OF PROCEDURE: The patient was taken to the operating room under adequate spinal anesthesia. Abdomen and perineum were prepped and draped. Pfannenstiel abdominal skin incision was made. Abdominal wall was cut layer by layer until the peritoneum was exposed and incised. Upon entering the abdominal cavity, lower uterine segment was identified, and uterovesical fold of peritoneum established. Bladder was pushed down. A low transverse uterine incision was made and incision extended laterally. Amniotic sac was entered. Clear fluid. Head delivered. Nasopharynx was suctioned. Live baby boy was delivered from right occiput transverse position. Nasopharynx was suctioned. Placenta was delivered manually. Uterine cavity was cleaned of all remaining tissue. Uterine incision was closed in 2 layers, the first layer with 0 Biosyn continuous suture, the second layer with 0 Biosyn imbricating the first layer. Bladder flap was closed with 0 Biosyn continuous suture. Both tubes and ovaries were checked and were normal. No active bleeding was seen. All of the lap pad, sponge, and instrument counts were correct. Peritoneum was closed with 0 Biosyn continuous suture. Muscles were brought together with interrupted sutures of 0 Biosyn. Fascia was closed with 0 Biosyn continuous suture, subcutaneous fat interrupted suture of 0 Biosyn, and the skin was closed with audrey. The patient tolerated the procedure well and left the OR in good condition. Caroline [id number]
[2017-04-13] MEDS ORDERED: BISACODYL 10 MG SUPP.RECT RC PRN (17:02)
[2017-04-14] MEDS: IBUPROFEN 600 MG TABLET (FP) PO PRN ×2 (08:17→16:28)
[2017-04-14] MEDS: ACETAMINOPHEN 325 MG TABLET (FP) PO PRN ×2 (08:18→16:29)
[2017-04-14] MEDS: SIMETHICONE 80 MG TAB.CHEW (FP) PO PRN ×2 (08:19→16:30)
--- NOTE | 2017-04-14 09:04 | PN ---
Progress Note (short form) - Note Progress Note: pod 2 , c/o low abdominal cramps, passing gas CBC, BMP 04/13/17 08:55 Last Vital Signs Temp Pulse Resp BP Pulse Ox 98.5 F 86 20 104/64 100 04/13/17 21:20 04/13/17 21:20 04/13/17 21:20 04/13/17 21:20 04/12/17 17:50 abdomen soft, no distension, no cva , bs present incision dry, clean , healing well no calf tenderness no excess vaginal bleeding plan ambulate, pain management, cbc in am Problem List - Problems (1) with 39 completed weeks gestation Code(s): Z3A.39 - 39 WEEKS GESTATION OF (2) Previous section complicating Code(s): O34.219 - MATERNAL CARE FOR UNSP TYPE SCAR FROM PREVIOUS DEL
[2017-04-14] MEDS ORDERED: FLU VACC QS2017-18 36MOS UP/PF 60 MCG/0.5 ML SYRINGE IM ONE (10:00)
[2017-04-14] MEDS ORDERED: DIPHTH,PERTUSS(ACELL),TET 0.5 ML DISP.SYRIN IM ONE (10:00)
[2017-04-14] MEDS: ENOXAPARIN NA (PORCINE) 40 MG/0.4 ML DISP.SYRIN SQ SCH (10:05)
[2017-04-14] MEDS ORDERED: SENNOSIDES/DOCUSATE COMBO (SENNA PLUS) TABLET (UD) PO PRN (22:00)
[2017-04-15 06:26] LABS: BASO % 0.9 % (0-2.0); EOS % 4.9 % (0-4.5); HEMOGLOBIN 9.6 GM/dL (10.7-15.3); LYMPH % 24.9 % (8-40); MCH 28.3 pg (25.7-33.7); MCHC 32.9 g/dl (32.0-36.0); MEAN PLT VOLUME 9.3 fl (7.5-11.1); MONO % 7.4 % (3.8-10.2); NEUT % 61.9 % (42.8-82.8); PLATELET COUNT 263 K/MM3 (134-434); RBC 3.38 M/mm3 (3.60-5.2); RDW 13.8 % (11.6-15.6); WHITE BLOOD COUNT 7.1 K/mm3 (4.0-10.0)
[2017-04-15] MEDS: IBUPROFEN 600 MG TABLET (FP) PO PRN (08:06)
[2017-04-15] MEDS: ACETAMINOPHEN 325 MG TABLET (FP) PO PRN (08:07)
[2017-04-15] MEDS: SIMETHICONE 80 MG TAB.CHEW (FP) PO PRN (08:08)
[2017-04-15] MEDS: ENOXAPARIN NA (PORCINE) 40 MG/0.4 ML DISP.SYRIN SQ SCH (09:14)
[2017-04-15 11:19] VITALS: BP 116/74; PULSE 79; TEMP 98.2
--- NOTE | 2017-04-15 13:05 | DS ---
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 Vital Signs: Vital Signs Temperature 98.2 F 04/15/17 10:00 Pulse Rate 79 04/15/17 10:00 Respiratory Rate 20 04/15/17 10:00 Blood Pressure 116/74 04/15/17 10:00 O2 Sat by Pulse Oximetry (%) 100 04/14/17 21:00 Constitutional: Yes: Well Nourished, No Distress, Calm Eyes: Yes: WNL, Conjunctiva Clear, EOM Intact HENT: Yes: WNL, Atraumatic, Normocephalic Neck: Yes: WNL, Supple, Trachea Midline Cardiovascular: Yes: WNL, Regular Rate and Rhythm Respiratory: Yes: WNL, Regular, CTA Bilaterally Gastrointestinal: Yes: WNL ...Rectal Exam: Yes: WNL Renal/: Yes: WNL ....Post : Yes: Uterus firm, Uterus non-tender, Slight lochia rubra Breast(s): Yes: WNL Musculoskeletal: Yes: WNL Extremities: Yes: WNL Edema: No Integumentary: Yes: WNL Wound/Incision: Yes: Clean/Dry, Well Approximated, [place] Intact Neurological: Yes: WNL, Alert, Oriented ...Motor Strength: WNL Psychiatric: Yes: WNL, Alert, Oriented Labs: CBC, BMP 04/15/17 06:05 Delivery - Delivery Section: Repeat (no complication), Low Flap Transverse Type of Anesthesia: Spinal Episiotomy/Laceration: None EBL (cc): 500 Delivery, Single - Stages of Labor Date of Delivery: 04/12/17 Time of Delivery: 16:33 Time Placenta Delivered: 16:34 Placenta: Yes: Manual Removal - Condition of Infant 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/Social Work Manager Present: Yes Name: Anisha Weber Infant Gender: Male Weight: 6 lb 12 oz Position: Right, OT Total Hours ROM (Hrs/Mins): 2min - 1 Minute Total Score: 9 5 Minutes Total Score: 9 - Feeding Plan Initial Plan: Elected not to breastfeed exclusively throughout hospitalization Discharge Summary Reason For Visit: C SECTION Current Active Problems with 39 completed weeks gestation (Acute) Previous section complicating (Acute) Procedures: Principal: repeat LST c/s Condition: Good - Instructions Diet, Activity, Other Instructions: regular diet, follow up hr care 1 week Disposition: HOME - Home Medications Comprehensive Discharge Medication List: Ambulatory Orders Nitrofurantoin Monohyd/M-Cryst [Macrobid -] 100 mg PO BID #14 capsule 10/10/16 Ibuprofen [Motrin -] 600 mg PO TID #21 tablet 04/15/17
--- NOTE | 2017-04-18 13:54 | PATH ---
Surgical Pathology Report Patient Name: MIKE PICKARD Med. Rec. #: [id number] /Age/Gender: 1995 (Age: 22) / F Account: [id number] Location: [facility] OBS/R&D ENGINEER Taken: 04/12/2017 Received: 04/13/2017 Reported: 04/18/2017 Physicians: Isiah Joyner M.D. Specimen(s) Received PLACENTA Clinical History , 39 weeks previous Final Diagnosis PLACENTA, DELIVERY: FOCALLY DISRUPTED THIRD TRIMESTER PLACENTA WITH THREE VESSEL UMBILICAL CORD AND UNREMARKABLE PLACENTAL MEMBRANES. Electronically Signed Giovanni Barton M.D. Gross Description The specimen is received fresh labeled placenta and is a 457 gram, 16.5 x 15.0 x 2.5 cm. placenta with attached membranes and umbilical cord. The attached membranes are rosales, translucent with focal opacities and insert marginally. The umbilical cord measures 31 cm. in length and averages 1 cm. in diameter. The cord inserts eccentrically, 4.5 cm. to the nearest margin. No true knots or strictures are identified. Cut surface of the umbilical cord reveals 3 vessels. The surface is jurado-blue with minimal fibrin deposition and appropriate caliber vessels. The maternal surface is red-brown with focal defects. Sectioning reveals red-brown, spongy parenchyma. No lesions are identified. Bull Float Finisher sections are submitted in three cassettes as follows: 1- membrane rolls and umbilical cord; 2-3- full thickness sections of placenta. 04/16/201704/16/2017
== END 2017-04-15 15:00 | disposition home or self-care (01) | DRG 540 ==
LOC: JLDR 14:00 → J3W 20:09
PROVIDERS: ADMIT Obstetrics & Gynecology; ATTEND Obstetrics & Gynecology
PROC: 10D00Z1 Extraction of Products of Conception, Low, Open Approach (ICD-10-PCS; principal; 2017-04-12)
DX: O34.219 Maternal care for unspecified type scar from previous cesarean delivery (principal); Z3A.39 39 weeks gestation of pregnancy; Z37.0 Single live birth
CPT/HCPCS: 36415; 85025; 88307-TC; 90686; 90715; G0008

== ENCOUNTER 2017-08-23 21:39 | Emergency (ER) | payer OTHER ==
--- NOTE | 2017-08-23 21:44 | PDOC ---
Rapid Medical Evaluation Time Seen by Provider: 08/23/17 21:41 Medical Evaluation: Allergies Allergy/AdvReac Type Severity Reaction Status Date / Time No Known Allergies Allergy Verified 10/06/16 20:34 08/23/17 21:42 I have performed a brief in-person evaluation of this patient. The patient presents with a chief complaint of: LMP 3 , lower abdominal pain , vaginal bleeding, denies Pertinent physical exam findings: pain w/ urination, denies urinary frequency I have ordered the following: urine The patient will proceed to the ED for further evaluation. Discharge Disposition - Diagnosis Urinary problem - Referrals - Patient Instructions - Post Discharge Activity
[2017-08-23 21:45] VITALS: BP 134/78; PULSE 80; TEMP 98.5; BMI 25.0
[2017-08-23 22:06] LABS: HCG,QUALITATIVE URINE NEGATIVE
[2017-08-23 22:07] LABS: URINE APPEARANCE SLCLOUDY; URINE BILIRUBIN NEGATIVE (<2.0 mg/dL); URINE BLOOD NEGATIVE (NEGATIVE); URINE COLOR LTYELLOW; URINE GLUCOSE (UA) NEGATIVE (NEGATIVE); URINE KETONE NEGATIVE (NEGATIVE); URINE LEUK ESTERASE 2+ (NEGATIVE); URINE NITRITE NEGATIVE (NEGATIVE); URINE PROTEIN NEGATIVE (NEGATIVE)
[2017-08-23 22:13] LABS: EPI CELLS RARE /HPF (FEW); URINE BACTERIA MODERATE /hpf (NONE SEEN); URINE HYALINE CAST 1 /lpf; URINE MUCUS RARE
--- NOTE | 2017-08-23 22:33 | PDOC ---
History of Present Illness - General Chief Complaint: Urinary Problem Stated Complaint: UTI Time Seen by Provider: 08/23/17 21:41 History Source: Patient Exam Limitations: No Limitations - History of Present Illness Travel History: No Past History - Travel Traveled outside of the country in the last 30 days: No Close contact w/someone who was outside of country & ill: No - Past Medical History Allergies/Adverse Reactions: Allergies Allergy/AdvReac Type Severity Reaction Status Date / Time No Known Allergies Allergy Verified 08/23/17 21:42 Home Medications: Ambulatory Orders Nitrofurantoin Monohyd/M-Cryst [Macrobid -] 100 mg PO BID #14 capsule 08/23/17 Phenazopyridine HCl [Pyridium] 100 mg PO TID #6 tablet 08/23/17 Asthma: No Cancer: No Cardiac Disorders: No COPD: No Diabetes: No HTN: No Seizures: No Thyroid Disease: No - Suicide/Smoking/Psychosocial Hx Smoking History: Never smoked Have you smoked in the past 12 months: No Hx Alcohol Use: No Drug/Substance Use Hx: No Substance Use Type: None Hx Substance Use Treatment: No Abd/GI Specific PMHX - Complaint Specific PMHX Colitis: No Review of Systems - Review of Systems Is the patient limited Syriac proficient: No Constitutional: No: Chills, Fever ABD/GI: No: Abdominal Distended, Abd. Pain w/ defecation, Blood Streaked Bowels , Difficulty Swallowing, Nausea, Poor Appetite, Poor Fluid Intake, Rectal Bleeding, Vomiting, Indigestion : Yes: Burning, Hematuria, Pain. 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 NML intact, Fully Oriented, Alert ED Treatment Course - ADDITIONAL ORDERS Additional order review: Laboratory Results 08/23/17 21:54 Urine Color Ltyellow Urine Appearance Slcloudy Urine pH 6.0 Ur Specific [place] 1.018 Urine Protein Negative Urine Glucose (UA) Negative Urine Ketones Negative Urine Blood Negative Urine Nitrite Negative Urine Bilirubin Negative Urine Urobilinogen 2.0 H Ur Leukocyte Esterase 2+ H Urine WBC (Auto) 65 Urine RBC (Auto) 5 Ur Epithelial Cells Rare Urine Bacteria Moderate Hyaline Casts 1 Urine Mucus Rare Urine HCG, Qual Negative Medical Decision Making - Medical Decision Making 08/23/17 22:54 22-year-old female with lower abdominal pressure with urinary dysuria, urgency, hematuria, frequency for 8 days Patient denies fever chills back pain nausea vomiting vaginal discharge or STI concerns plan: UA consistent with UTI Abx sent ucx *DC/Admit/Observation/Transfer Diagnosis at time of Disposition: Urinary problem UTI (urinary tract infection) Qualifiers: Urinary tract infection type: acute cystitis Hematuria presence: with hematuria Qualified Code(s): N30.01 - Acute cystitis with hematuria - Discharge Dispostion Disposition: HOME Condition at time of disposition: Stable Admit: No - Prescriptions Prescriptions: Nitrofurantoin Monohyd/M-Cryst [Macrobid -] 100 mg PO BID #14 capsule Phenazopyridine HCl [Pyridium] 100 mg PO TID #6 tablet - Referrals - Patient Instructions Printed Discharge Instructions: Urinary Tract Infection - Post Discharge Activity
== END 2017-08-23 22:36 | disposition home or self-care (01) ==
LOC: JERFT 21:39
DX: N30.01 Acute cystitis with hematuria (principal)
CPT/HCPCS: 81003; 81015; 84703; 87086; 87186; 99281-25

== ENCOUNTER 2018-06-16 10:01 | Emergency (ER) | payer OTHER ==
[2018-06-16 10:07] VITALS: BP 112/63; PULSE 86; TEMP 98.1; BMI 25.2
--- NOTE | 2018-06-16 10:56 | PDOC ---
History of Present Illness - General Chief Complaint: Back Pain Stated Complaint: BACK PAIN Time Seen by Provider: 06/16/18 10:47 History Source: Patient Exam Limitations: No Limitations - History of Present Illness Initial Comments: 06/16/18 11:31 Here with sister helping translate, with complaints of waistline and low back pain. 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 States pain started 2-3 days ago and has taken no medication or provided any treatments for relief. Denies fever, denies any problems with bowel or bladder, no vaginal problems, no chance for Occurred: reports: last week Severity: reports: mild Pain Location: reports: back Loss of Consciousness: no loss of consciousness Associated Symptoms (Fall): denies symptoms Past History - Travel Traveled outside of the country in the last 30 days: No Close contact w/someone who was outside of country & ill: No - Past Medical History Allergies/Adverse Reactions: Allergies Allergy/AdvReac Type Severity Reaction Status Date / Time No Known Allergies Allergy Verified 08/23/17 21:42 Home Medications: Ambulatory Orders Nitrofurantoin Monohyd/M-Cryst [Macrobid -] 100 mg PO BID #14 capsule 08/23/17 Phenazopyridine HCl [Pyridium] 100 mg PO TID #6 tablet 08/23/17 Ibuprofen 400 mg PO Q6H PRN #30 tablet 06/16/18 Asthma: No Cancer: No Cardiac Disorders: No COPD: No Diabetes: No HTN: No Seizures: No Thyroid Disease: No - Suicide/Smoking/Psychosocial Hx Smoking History: Never smoked Have you smoked in the past 12 months: No Hx Alcohol Use: No Drug/Substance Use Hx: No Substance Use Type: None Hx Substance Use Treatment: No Review of Systems - Review of Systems Able to Perform ROS?: Yes Is the patient limited Luxembourgish proficient: Yes Constitutional: Yes: Symptoms Reported, See HPI, Malaise HEENTM: No: Symptoms Reported Respiratory: Yes: See HPI. No: Symptoms reported, Cough Musculoskeletal: Yes: Symptoms Reported, See HPI, Back Pain, Muscle Pain, Muscle Weakness *Physical Exam - Vital Signs Last Vital Signs Temp Pulse Resp BP Pulse Ox 98.1 F 86 18 112/63 100 06/16/18 10:05 06/16/18 10:05 06/16/18 10:05 06/16/18 10:05 06/16/18 10:05 - Physical Exam General Appearance: Yes: Nourished, Appropriately Dressed, Apparent Distress, Mild Distress HEENT: positive: DONIS, Normal ENT Inspection, TMs Normal, Pharynx Normal Neck: positive: Tender, Supple Respiratory/Chest: positive: Chest Tender, Lungs Clear, Normal Breath Sounds Gastrointestinal/Abdominal: positive: Normal Bowel Sounds, Soft. negative: Tender Musculoskeletal: positive: Normal Inspection, Decreased Range of Motion. negative: CVA Tenderness, Muscle Spasm, Vertebral Tenderness Extremity: positive: Normal Capillary Refill. 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 NML intact, Fully Oriented, Alert, Normal Mood/ Affect, Normal Response, Motor Strength 5/5 Moderate Sedation - Procedure Monitoring Vital Signs: Procedure Monitoring Vital Signs Temperature 98.1 F 06/16/18 10:05 Pulse Rate 86 06/16/18 10:05 Respiratory Rate 18 06/16/18 10:05 Blood Pressure 112/63 06/16/18 10:05 O2 Sat by Pulse Oximetry (%) 100 06/16/18 10:05 Progress Note - Progress Note Progress Note: Back strain,will treat with NSAIDS *DC/Admit/Observation/Transfer Diagnosis at time of Disposition: Low back strain Qualifiers: Encounter type: initial encounter Qualified Code(s): S39.012A - Strain of muscle, fascia and tendon of lower back, initial encounter - Discharge Dispostion Disposition: HOME Condition at time of disposition: Stable Decision to Admit order: No - Referrals Referrals: Carole Pruett CNM [Primary Care Provider] - - Patient Instructions Printed Discharge Instructions: DI for Back Strain or Sprain Additional Instructions: Rest, no heavy lifting or exercise until pain is resolved Hot soaks to neck and low back as often as possible/hot showers or Jacuzzis No massage or therapy until spasm is gone Continue ibuprofen 400 mg, 1 tablet every 8 hours for the next 3 days then as needed for pain and swelling If not significant improvement within 24 hours with medication and rest regime, followup with private physician for change in medications and /or therapy. - Post Discharge Activity Forms/Work/School Notes: Back to Work
[2018-06-16] MEDS ORDERED: IBUPROFEN 400 MG TABLET (FP) PO ONE ×2 (11:24→11:25)
== END 2018-06-16 11:50 | disposition home or self-care (01) ==
LOC: JERFT 10:01
DX: S39.012A Strain of muscle, fascia and tendon of lower back, initial encounter (principal); X50.0XXA Overexertion from strenuous movement or load, initial encounter; Y93.89 Activity, other specified; Y92.512 Supermarket, store or market as the place of occurrence of the external cause; Y99.0 Civilian activity done for income or pay
CPT/HCPCS: 99281-25

== ENCOUNTER 2019-07-03 12:58 | Emergency (ER) | payer OTHER ==
[2019-07-03 13:04] VITALS: BP 124/72; PULSE 82; TEMP 98.2; BMI 26.7
--- NOTE | 2019-07-03 13:20 | PDOC ---
History of Present Illness - General Chief Complaint: Injury Stated Complaint: PAIN RT HAND Time Seen by Provider: 07/03/19 13:09 History Source: Patient Exam Limitations: No Limitations Past History - Travel Traveled outside of the country in the last 30 days: No Close contact w/someone who was outside of country & ill: No - Past Medical History Allergies/Adverse Reactions: Allergies Allergy/AdvReac Type Severity Reaction Status Date / Time No Known Allergies Allergy Verified 07/03/19 13:01 Home Medications: Ambulatory Orders Ibuprofen 600 mg PO Q6H #30 tablet 07/03/19 Asthma: No Cancer: No Cardiac Disorders: No COPD: No Diabetes: No HTN: No Seizures: No Thyroid Disease: No - Psycho Social/Smoking Cessation Hx Smoking History: Never smoked Have you smoked in the past 12 months: No Hx Alcohol Use: No Drug/Substance Use Hx: No Substance Use Type: None Hx Substance Use Treatment: No Review of Systems - Review of Systems Able to Perform ROS?: Yes Comments:: 07/03/19 13:19 CONSTITUTIONAL: Absent: fever, chills, diaphoresis, generalized weakness, malaise, loss of appetite MUSCULOSKELETAL: Present: Right wrist pain Absent: myalgia, joint swelling SKIN: Absent: rash, itching, pallor NEUROLOGIC: Absent: headache, focal weakness or paresthesias, dizziness, unsteady gait, seizure, mental status changes, bladder or bowel incontinence PSYCHIATRIC: Absent: anxiety, depression, suicidal or homicidal ideation, hallucinations. Is the patient limited Spanish proficient: No *Physical Exam - Vital Signs Last Vital Signs Temp Pulse Resp BP Pulse Ox 98.2 F 82 18 124/72 99 07/03/19 13:02 07/03/19 13:02 07/03/19 13:02 07/03/19 13:02 07/03/19 13:02 - Physical Exam 07/03/19 13:20 GENERAL: The patient is awake, alert, and fully oriented, in no acute distress. HEAD: Normal with no signs of trauma. EYES: Pupils equal, round and reactive to light, extraocular movements intact, sclera anicteric, conjunctiva clear. EXTREMITIES: Tenderness to palpation over the right anatomical snuffbox. No swelling noted. Patient unable to make a thumbs up sign without pain. Normal range of motion, no edema. NEUROLOGICAL: Normal speech, normal gait. PSYCH: Normal mood, normal affect. SKIN: Warm, Dry, normal turgor, no rashes or lesions noted. Procedures - Splinting Splint Location: Right: Hand Pre-Proc Neuro Vasc Exam: normal Hand-Made Type: orthoglass Splint Type: Yes: Thumb Spica Post-Proc Neuro Vasc Exam: unchanged from pre-exam Neville Bandage: 2" ED Treatment Course - RADIOLOGY Radiology Studies Ordered: Category Date Time Status WRIST W/HAND-RIGHT* [RAD] Stat Radiology 07/03/19 13:12 Ordered Medical Decision Making - Medical Decision Making 07/03/19 14:23 Patient is a 24-year-old female with past medical history of a right wrist injury, presents to the ER today with right wrist pain. She states that her nephew bent her fingers backwards on her right hand and since then she has had pain in her right hand/wrist. She states it hurts to move her thumb. She is right-hand dominant. Denies numbness, tingling and weakness the affected extremity. A/P: Right hand pain On exam patient with tenderness palpation over the anatomical snuffbox. Pain with making a thumbs up sign. X-ray shows no acute fractures however the old injury is visualized. Possible old distal radial injury/scaphoid injury. Patient placed in a thumb spica splint and told to follow-up with orthopedics within the week. Discharge home with [facility] I discussed the physical exam findings, ancillary test results and final diagnoses with the patient. I answered all of the patient's questions. The patient was satisfied with the care received and felt comfortable with the discharge plan and treatment plan. The Patient agrees to follow up with the primary care physician/specialist within 24-72 hours. Return precautions were given. Discharge - Discharge Information Problems reviewed: Yes Clinical Impression/Diagnosis: Right hand pain Condition: Stable Disposition: HOME - Admission No - Follow up/Referral Referrals: Barry Tobin [Primary Care Provider] - Hipolito Sarmiento MD [Staff Physician] - Rustam Rahman MD [Staff Physician] - - Patient Discharge Instructions Patient Printed Discharge Instructions: DI for Hand Pain Additional Instructions: You were evaluated for your hand pain today. Your x-rays did not show any broken bones You were placed in a hand splint as you had pain just below your thumb. Please leave the splint on until you can see orthopedics. You were given to referrals for hand specialist. You may take Motrin 600 mg every 6 hours as needed for pain. Keep the hand elevated while resting. Return to the ER for worsening pain, numbness and tingling to the extremity or if you have any changes in your symptoms. Hoy te evaluaron para el dolor de edward. Las radiografas no mostraron huesos rotos Te pusieron en meryl frula de mano mientras tenas dolor cornelio debajo de tu pulgar. Por favor, deje la frula encendida hasta que pueda keven la ortopedia. Se le orlando a referencias para especialista en edward. Puede bobby Motrin 600 mg cada 6 horas segn sea necesario para el dolor. Mantenga la mano elevada mientras descansa. Regrese a urgencias para empeorar el dolor, el entumecimiento y el hormigueo en las extremidades o si tiene algn cambio en los sntomas. - Post Discharge Activity Work/Back to School Note: Back to Work
== END 2019-07-03 14:19 | disposition home or self-care (01) ==
LOC: JERFT 12:58
PROC: 2W3GX1Z Immobilization of Right Thumb using Splint (ICD-10-PCS; principal; 2019-07-03)
DX: S69.81XA Other specified injuries of right wrist, hand and finger(s), initial encounter (principal); M79.641 Pain in right hand; X50.1XXA Overexertion from prolonged static or awkward postures, initial encounter; Y93.89 Activity, other specified; Y92.038 Other place in apartment as the place of occurrence of the external cause; Y99.8 Other external cause status
CPT/HCPCS: 29130; 73110-TC-RT-FY; 73130-TC-RT-FY; 99283-25

== ENCOUNTER 2020-08-25 04:22 | Day surgery (SDC) | payer OTHER ==
[2020-08-25 06:56] VITALS: BMI 28.3
[2020-08-25] MEDS ORDERED: LIDOCAINE HCL 1%, 10 MG/ML (20ML VIAL) ONE (07:12)
[2020-08-25] MEDS ORDERED: MIDAZOLAM HCL 2 MG/2 ML SINGLE DOSE VIAL ONE ×3 (08:29→08:34)
[2020-08-25] MEDS ORDERED: PROPOFOL 20 ML ONE (08:35)
[2020-08-25] MEDS ORDERED: LIDOCAINE HCL 1%, 10 MG/ML (20ML VIAL) SQ ONE (08:46)
[2020-08-25] MEDS ORDERED: BUPIVACAINE HCL/PF 0.5% (5MG/ML) 10 ML VIAL IJ ONE (08:46)
[2020-08-25] MEDS ORDERED: BUPIVACAINE HCL 50 ML ONE (09:24)
[2020-08-25 09:44] VITALS: TEMP 98.6
[2020-08-25] MEDS ORDERED: oxyCODONE HCL 5 MG TABLET ONE (09:49)
[2020-08-25] MEDS ORDERED: oxyCODONE HCL 5 MG TABLET PO ONE (09:52)
[2020-08-25] MEDS ORDERED: PROMETHAZINE HCL 25 MG/1 ML VIAL IVPB PRN (09:58)
[2020-08-25] MEDS ORDERED: oxyCODONE HCL 5 MG TABLET PO PRN ×2 (09:58→10:40)
[2020-08-25] MEDS ORDERED: ONDANSETRON 4 MG/2 ML VIAL IVPUSH PRN (09:58)
[2020-08-25] MEDS ORDERED: ACETAMINOPHEN 325 MG TABLET (FP) PO PRN (10:40)
[2020-08-25] MEDS ORDERED: LACTATED RINGERS SOLUTION 1,000 ML IV SCH (10:45)
[2020-08-25 12:21] VITALS: BP 111/73; PULSE 77
== END 2020-08-25 11:55 | disposition home or self-care (01) ==
LOC: JASU-SURG 04:22
PROVIDERS: ATTEND Surgery
PROC: 0HB1XZZ Excision of Face Skin, External Approach (ICD-10-PCS; principal; 2020-08-25 08:00)
DX: L72.3 Sebaceous cyst (principal)
CPT/HCPCS: 81025; 88305-TC; 88341-TC; 88342-TC

== ENCOUNTER 2021-03-03 13:34 | Emergency (ER) | payer OTHER ==
[2021-03-03 13:48] VITALS: BP 124/78; PULSE 77; TEMP 98.1; BMI 35.4
[2021-03-03] MEDS ORDERED: IBUPROFEN 600 MG TABLET (FP) PO ONE ×2 (14:10→14:11)
== END 2021-03-03 14:24 | disposition home or self-care (01) ==
LOC: JERFT 13:34
DX: S09.90XA Unspecified injury of head, initial encounter (principal); W20.8XXA Other cause of strike by thrown, projected or falling object, initial encounter
CPT/HCPCS: 99283-25